=== PATIENT | male | born 1945 | race Caucasian/White ===

== ENCOUNTER → 2018-03-12 | Outpatient (CLI) | payer BC ==
[~2018-03-12] MED LIST: AMLO10 PO; AMLO5 PO; ATOR40TA PO; INSUASPI SC; INSULANPEN SC; LIRA0.6P; LOSA25 PO; METF500 PO; METO25ER PO; Omeprazole20 M1 PO; Prozac20 MG PO; TAMS.4ER PO; XARELTO10 MG PO; XARELTO20 MG PO
== END | disposition home or self-care (01) ==
LOC: LAB EV 10:23 → LAB SHORT 10:23
DX: J02.9 Acute pharyngitis, unspecified (principal)
CPT/HCPCS: 87070

== ENCOUNTER 2023-09-03 11:58 | Emergency (ER) | payer OTHER ==
[~2023-09-03] VITALS: Ht 175.3 cm; Wt 117.9 kg
[~2023-09-03 11:58] MED LIST changes: +ASCO500 PO; +CEFD300 PO; +CEFP200 PO; +JARDIANCE25 MG PO; -LOSA25 PO; +LOSARTAN-HCTZ1 EAC5 PO; +METO25 PO; -METO25ER PO; +TADALAFIL5 M1 PO; +TRULICITY1.5 MG/0.1 SC
[2023-09-03 13:27] LABS: BASOPHILS ABSOLUTE AUTO 0.01 K/mm3 (0.00-0.23); BASOPHILS PERCENT AUTO 0 % (0-2); EOSINOPHILS ABSOLUTE AUTO 0.14 K/mm3 (0.00-0.68); EOSINOPHILS PERCENT AUTO 4 % (0-6); Hematocrit 35.8 % (37.0-53.0); Hemoglobin 11.9 g/dL (13.5-17.5); IMMATURE GRAN ABSOLUTE AUTO 0.01 K/mm3 (0.00-0.10); IMMATURE GRAN PERCENT AUTO 0 % (0-1); LYMPHOCYTES ABSOLUTE AUTO 0.69 K/mm3 (0.84-5.20); LYMPHOCYTES PERCENT AUTO 19 % (21-46); MONOCYTES ABSOLUTE AUTO 0.48 K/mm3 (0.16-1.47); MONOCYTES PERCENT AUTO 13 % (4-13); Mean Corpuscular HGB 29.8 pg (26.0-34.0); Mean Corpuscular HGB Conc 33.2 g/dL (31.5-36.5); Mean Corpuscular Volume 90 fL (80-100); Mean Platelet Volume 9.9 fL (9.1-12.4); NEUTROPHILS ABSOLUTE AUTO 2.28 K/mm3 (1.96-9.15); NEUTROPHILS PERCENT AUTO 63 % (41-73); Platelet Count 119 K/mm3 (150-400); RDW Coefficient Variation 15.1 % (11.7-14.2); RDW Standard Deviation 50.5 fL (35.1-46.3); White Blood Cell Count 3.61 K/mm3 (4.00-11.30)
[2023-09-03 13:45] LABS: Albumin/Globulin Ratio 0.8 (0.8-1.8); Bilirubin, Total 0.9 mg/dL (0.1-1.0); Bun/Creatinine Ratio 33.8 (12.0-20.0); Calcium, Blood 8.8 mg/dL (8.5-10.1); Creatinine, Blood 0.95 mg/dL (0.60-1.20); Globulin, Blood 3.7 g/dL (2.2-4.0); Potassium, Blood 3.7 mmol/L (3.5-5.5); Total Protein, Blood 6.7 g/dL (6.4-8.2)
[2023-09-03 14:21] LABS: Source, Urine Clean Catch
[2023-09-03 14:28] LABS: Appearance, Urine Clear (Clear); Bilirubin, Urine Neg (Neg); Blood, Urine 2+ (Neg); Color, Urine Yellow (P-Yellow); Glucose Qualitative, Urine 2+ (Neg); Ketones, Urine Neg (Neg); Leukocyte Esterase, Urine Neg (Neg); Nitrite, Urine Neg (Neg); Protein, Urine Neg (Neg); Urobilinogen, Urine NORM (Normal); pH, Urine 6.5 (5.0-8.0)
[2023-09-03 14:43] LABS: Bacteria Few /hpf; Squamous Epithelial Cells Rare /hpf (Few)
[2023-09-03] MEDS ORDERED: Trimethoprim/Sulfamethoxazole DS Tab PO ONE (16:35)
[2023-09-03] MEDS ORDERED: SULTRIDS PO (16:41)
[2023-09-03 16:55] VITALS: BP 100/82
== END 2023-09-03 16:56 | disposition home or self-care (01) ==
LOC: ER 11:58
PROVIDERS: Nurse Practitioner
DX: N41.9 Inflammatory disease of prostate, unspecified (principal); R31.9 Hematuria, unspecified; Z87.891 Personal history of nicotine dependence; I48.91 Unspecified atrial fibrillation; I10 Essential (primary) hypertension; E11.9 Type 2 diabetes mellitus without complications; G47.30 Sleep apnea, unspecified; Z79.84 Long term (current) use of oral hypoglycemic drugs; Z79.899 Other long term (current) drug therapy
CPT/HCPCS: 74177; 80053; 81001; 85025; 99284-25; A9270; Q9967